=== PATIENT | female | born 2005 | race Hispanic/Latino ===

== ENCOUNTER 2024-02-09 12:06 | Emergency (ER) | payer OTHER ==
[~2024-02-09] VITALS: Ht 154.9 cm; Wt 66.7 kg
[2024-02-09] MEDS: acetaMINOPHEN 500 MG TABLET PO ONE (13:28)
[2024-02-09 14:04] VITALS: BP 122/68; PULSE 78; RESP 18; O2SAT 98
== END 2024-02-09 14:05 | disposition home or self-care (01) ==
LOC: EDH 12:06 → EDBD 12:06 → EDH 14:05
DX: M25.511 Pain in right shoulder (principal)
CPT/HCPCS: 99282